=== PATIENT | male | born 1990 | race Caucasian/White ===

== ENCOUNTER 2018-06-19 14:24 | Emergency (ER) | payer OTHER ==
[~2018-06-19] VITALS: Ht 165.1 cm; Wt 93.0 kg
[2018-06-19] MEDS ORDERED: FLEXERIL PO (15:17)
[2018-06-19] MEDS ORDERED: MEDROLDOSEPACK PO (15:17)
[2018-06-19] MEDS ORDERED: TRAMADOL 50 MG50 MG PO (15:17)
[2018-06-19 15:50] VITALS: BP 131/92
== END 2018-06-19 15:51 | disposition home or self-care (01) ==
LOC: ER 14:24
DX: M54.5 Low back pain (principal)